=== PATIENT | male | born 1990 | race African-American/Black ===

== ENCOUNTER 2018-09-09 18:59 | Emergency (ER) | payer OTHER ==
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
[2018-09-09 21:16] VITALS: BP 129/89
== END 2018-09-09 21:15 | disposition home or self-care (01) ==
LOC: ED 18:59
DX: S09.90XA Unspecified injury of head, initial encounter (principal); S00.83XA Contusion of other part of head, initial encounter; W50.0XXA Accidental hit or strike by another person, initial encounter; Y92.9 Unspecified place or not applicable; L72.3 Sebaceous cyst; F17.200 Nicotine dependence, unspecified, uncomplicated
CPT/HCPCS: 70450; 99283